=== PATIENT | male | born 1980 | race Caucasian/White ===

== ENCOUNTER 2017-07-24 13:37 | Emergency (ER) | payer MEDICAID ==
[~2017-07-24] VITALS: Ht 195.6 cm; Wt 97.5 kg
[2017-07-24 17:00] VITALS: BP 121/79
== END 2017-07-24 17:11 | disposition home or self-care (01) ==
LOC: ER 13:37
DX: J20.9 Acute bronchitis, unspecified (principal); F17.210 Nicotine dependence, cigarettes, uncomplicated
CPT/HCPCS: 71046

== ENCOUNTER 2020-07-23 03:01 | Emergency (ER) | payer MEDICAID ==
[~2020-07-23] VITALS: Ht 195.6 cm; Wt 102.1 kg
[2020-07-23 05:00] VITALS: BP 109/51
== END 2020-07-23 05:50 | disposition left against medical advice (07) ==
LOC: ER 03:03
DX: M25.512 Pain in left shoulder (principal); R07.89 Other chest pain; F17.210 Nicotine dependence, cigarettes, uncomplicated; W18.39XA Other fall on same level, initial encounter; Y93.01 Activity, walking, marching and hiking; Y92.89 Other specified places as the place of occurrence of the external cause; Y99.8 Other external cause status
CPT/HCPCS: 73030